=== PATIENT | male | born 1955 | race Caucasian/White ===

== ENCOUNTER → 2018-02-04 22:37 | Outpatient (CLI) | payer OTHER, SELFPAY ==
[2018-02-04 19:07] VITALS: BMI 22.5
[2018-02-04 23:28] LABS: Thyroid Stim Hormone (TSH) 3.26 uIU/mL (0.358-3.74)
--- OUTSIDE RECORDS SUMMARY | 2018-04-02 10:36 | XMS RPT_ITS ---
:1955 Author Organization OH[facility] Care Team Providers Name Role Phone EVANGELINA OGDEN Attending Unavailable Rosmery Michelle NP-Landen Attending Unavailable Rosmery Michelle Referring Unavailable PROBLEMS PROBLEMS DATE TYPE CONDITION / CODE ATTENDING STATUS SOURCE 02/05/2018 Unknown E03.9 - Miguel Angel, Active Cherelle HypothyroidismRosmery NP-C [facility] E03.9(ICD-10) Repository 01/23/2018 Active Unknown / EVANGELINA OGDEN Active [facility] UNK(Unknown) [address] [place] Repository PROCEDURES PROCEDURES No Procedure Records FoundRESULTS RESULTS OFFICE VISIT Observed: 02/05/2018 Status: F Source: [place] 12:35 PM [facility] [address] [place] [address] OFFICE VISIT Date of Service: 02/04/18 MR#: [id number] Acct: [id number] Name: SRIDHAR PRABHAKAR Rep #: [id number] : 1955 Provider: ADELSO Michelle Age/Sex: 62/M Location: [facility] Status: Signed Intake Vital Signs02/04/18 Height 5 ft 10 in 02/04/18 Weight: 157 lb Intake Visit Reasons: HEAD PAIN Allergies Penicillins Allergy (Intermediate, Unverified 02/04/18 15:33) Rash Medications bupropion HCl XL 150 mg 24 hr tablet, extended release 150 mg PO QAM #90 tab 02/04/18 [Rx Confirmed 02/04/18] cefuroxime axetil 500 mg tablet 500 mg PO Q12H 10 Days #20 tab 02/04/18 [Rx Confirmed 02/04/18] fesoterodine ER 4 mg tablet,extended release 24 hr 4 mg PO DAILY #90 tab 02/04/18 [Rx Confirmed 02/04/18] omeprazole 40 mg capsule,delayed release 40 mg PO DAILY #90 cap 02/04/18 [Rx Confirmed 02/04/18] sildenafil 100 mg tablet 100 mg PO ONCE 02/04/18 [History Confirmed 02/04/18] levothyroxine 75 mcg tablet 75 mcg PO DAILY #30 tab 02/05/18 [Rx Confirmed 02/05/18] melatonin 10 mg tablet 20 mg PO HS PRN tab 02/05/18 [History Confirmed 02/05/18] PFSH Medical History Anxiety (Acute) BPH (Acute) Depression (Acute) Hypothyroid (Acute) Hypothyroidism (acquired) (Acute) Insomnia (Acute) Lichen planus (Acute) bladder not emptying properly (Acute) endoscopy 2009 (Acute) Family History Other Colon cancer Heart disease Social History Smoking Status: Never smoker HPI HPI (General) HPI HPI: SRIDHAR PRABHAKAR, is a 62 M who presents to the office today for pressure pain in his forehead especially when he bends over. ROS Const Constitutional: Positive for headache(s) ENT ENT: Positive for headache(s) and dizziness/vertigo Resp Respiratory: Positive for cough Gastro GI: Yes nausea/dyspepsia Neuro Neurology: Positive for headache(s) Exam Const Constitutional: Yes cooperative, Yes healthy appearing Orientation: Yes alert, awake and oriented x3 HENMT Head: Yes normocephalic Ear: Yes hearing grossly normal bilaterally Neck Neck: normal visual inspection Thyroid: thyroid normal Eyes General: Yes appearance normal, both eyes and all related structures Chest Chest palpation AND inspection: Yes normal inspection of the chest Resp Effort AND Inspection: Yes normal respiratory effort Auscultation: Yes clear to auscultation bilaterally Cardio Palpitation: Yes normal PMI Rate: Yes regular rate Rhythm: Yes regular rhythm GI Inspection: Yes normal to inspection Auscultation: Yes normal bowel sounds Musc Cervical Spine: Yes cervical ROM normal Thoracic/Lumbar Spine: Yes thoracic and lumbar spine normal to inspection Skin General: no rashes or lesions noted Lesions: Yes no lesions Extrem General: Yes normal to inspection Neuro General: Yes alert and oriented x3 Psych Appearance: Positive grossly normal Mood: Positive congruent mood Affect: Positive normal affect Assessment AND Plan Problems 1. Acute non-recurrent maxillary sinusitis J01.00 2. Headache disorder R51 3. Generalized anxiety disorder F41.1 4. Recurrent major depressive disorder, in full remission F33.42 5. Elevated BP without diagnosis of hypertension R03.0 Patient Instructions Take the medications as prescribed follow up in Mar for labs drawn and recheck BP tsh elevated so will increase dose to 75 mcg and recheck tsh and BP in 6 weeks Return sooner if not better. Orders Orders: Medications New: Coding Level of Care Code Off vis,est,level 3 Diagnoses Acute non-recurrent maxillary sinusitis J01.00 Chronicity: acute Recurrence: non-recurrent Headache disorder R51 Generalized anxiety disorder F41.1 Anxiety disorder type: generalized anxiety disorder Recurrent major depressive disorder, in full remission F33.42 Active/Remission status: in full remission Depression Type: major depressive disorder Major depression recurrence: recurrent Elevated BP without diagnosis of hypertension R03.0 02/05/18 1235 <Electronically signed by Rosmery ROE> Date Rosmery ROE CC: THYROID STIM HORMONE Collected: 02/04/2018 Status: F Source: [place] ([facility]) 7:30 PM [facility] [place] TYPE CODE TESTS RESULT OUT OF RANGE REFERENCE UNITS LAB L501.9520 0.358-3.74 uIU/mL Normal TSH 3.26 Performed By: #### L501.9520 #### [facility] [address] [place], [address] PROGRESS Observed: 01/27/2018 Status: COMPLETED Source: [place] 9:33 AM [facility] [place] REPOSITORY O ID: [id number] Author: Evangelina Ogden Service: (none) Author Type: Physician Type: Progress Notes Filed: 01/27/2018 9:37 AM Note Text: PROGRESS NOTES PATIENT NAME: Sridhar Prabhakar Assessment ASSESSMENT/PLAN: (R10.31) Abdominal wall pain in right lower quadrant (primary encounter diagnosis) Sridhar presents with recurrent right lower quadrant abdominal wall pain. He is status post laparoscopic right inguinal hernia repair with mesh in June 2015. He has attributed this with lifting heavy boxes at work. On exam I do not palpate a recurrent hernia. I suspect he has scar tissue from his previous repair as his pain seems to be located where the mesh was present. I recommend physical therapy for myofascial release. He will keep me posted on his progress. Office Visit on 01/23/18 -CONSULT TO PHYSICAL THERAPY -levothyroxine (SYNTHROID) 50 mcg tablet SUBJECTIVE CHIEF COMPLAINT: Patient presents with: Consult: Right Inguinal hernia INTERVAL HISTORY OF PRESENT ILLNESS: Sridhar is a 62-year-old gentleman status post laparoscopic right inguinal hernia repair with mesh in June 2015. Postoperatively he did have persistent right lower quadrant pain. This had improved until a month ago when he was moving heavy boxes at work. He felt a sharp ache in his right lower quadrant abdominal wall. The discomfort lasted 2 days and then improved. He continues to have discomfort especially with lifting. Lidocaine patches help. He denies GI symptoms. HISTORIES: PAST MEDICAL HISTORY Diagnosis Date - Acid reflux - Chronic fatigue syndrome with fibromyalgia - Low blood sugar - Unilateral inguinal hernia PAST SURGICAL HISTORY Procedure Laterality Date - COLONOSCOPY - REPAIR INGUINAL HERNIA Right 06/21/2015 ALLERGIES: Patient has no known allergies. MEDICATIONS: Current Outpatient Prescriptions: levothyroxine (SYNTHROID) 50 mcg tablet Take 50 mcg by mouth daily before breakfast. acetaminophen (TYLENOL) 325 mg tablet Take 650 mg by mouth every 6 hours as needed. Fesoterodine (TOVIAZ) 8 mg Tb24 Take by mouth four times daily. omeprazole (PRILOSEC) 20 mg capsule Take 20 mg by mouth once daily. sildenafil (VIAGRA) 100 mg tablet Take 1 tablet by mouth as needed. 30-60 minutes before sexual intercourse. buPROPion SR (WELLBUTRIN SR) 150 mg 12 hr tablet Take 1 tablet by mouth twice daily. Melatonin 1 mg ORAL Tab Take 2 tablets daily at bedtime. Ibuprofen 100 mg tablet Take 400 mg by mouth every 6 hours as needed. No current facility-administered medications for this visit. FAMILY HISTORY Problem Relation Age of Onset - Heart Mother Heart attack - other (Cirrhosis) Father - Colon Cancer Maternal Aunt - Colon Cancer Maternal Uncle Social History Marital status: Spouse name: Years of education: Number of children: Social History Main Topics Smoking status: Never Smoker Smokeless tobacco: Never Used Alcohol use: Yes Comment: once every three months Drug use: No Sexual activity: Yes Partners with: Female Reviewed and agreed with Review of Systems completed by the clinical staff. OBJECTIVE PHYSICAL EXAM: BP 135/85 Pulse 88 Ht 5' 11 (1.80m) Wt 154 lb (69.9kg) BMI 21.49 kg/(m2). General: Well developed, well-nourished, in no distress HEENT: Normocephalic, atraumatic. Extraocular movements intact. Sclera are nonicteric. Heart: Regular rate and rhythm, no murmur Lungs: Clear to auscultation, without wheezes Abdomen: Soft, non tender, positive bowel sounds, no masses, no reproducible pain at this time. The area where he describes discomfort is the area where the mesh is present. No evidence for recurrent hernia. Rectal: Not evaluated Extremities: No edema Neurologic: Alert, oriented, and appropriate. DATA: Diagnostic tests reviewed for today's visit: None Evangelina Ogden MD PROGRESS Observed: 01/23/2018 Status: COMPLETED Source: [place] 9:31 AM [facility] REPOSITORY HNO ID: [id number] Author: Karley Lay LPN Service: (none) Author Type: (none) Type: Progress Notes Filed: 01/27/2018 9:37 AM Note Text: GENERAL:No weight loss, No malaise, No fevers HEENT:Negative for frequent or significant headaches, Positive for:, Wear glasses or contacts, No changes in hearing or vision, no nose bleeds or other nasal problems CARDIOVASCULAR: Negative for chest pain, Negative for leg swelling, Negative for palpitaions RESPIRATORY:Negative for cough, Negative for wheezing , Negative for shortness of breath GASTROINTESTINAL: Negative for abdominal discomfort, Negative for blood in stools, Negative for black stools and Negative for change in bowel habits GENITOURINARY: No history of dysuria, frequency or incontinence. ENDOCRINE:None MUSCULOSKELETAL: Negative for joint pain , Negative for swelling, Negative for back pain, Negative for muscle pain NEUROLOGIC:Negative for focal numbness Negative for weakness Negative for headache Negative for syncope Negative for dizziness HEMATOLOGIC/LYMPHATIC/IMMUNOLOGIC:Positive for: and Bleeding or bruising tendancy CNOV Observed: 01/23/2018 Status: COMPLETED Source: [place] 9:15 AM [facility] REPOSITORY Office Visit (GENSME) SRIDHAR PRABHAKAR ([id number]) 1955 M [facility] Date Time Provider Department 01/23/18 9:15 AM EVANGELINA OGDEN During your visit today, we recorded the following information about you: Pulse Blood pressure Weight Height 88/minute 135/85 69.9 kg 1.803 m Karley Lay [facility] 01/27/2018 9:37 AM Signed GENERAL:No weight loss, No malaise, No fevers HEENT:Negative for frequent or significant headaches, Positive for:, Wear glasses or contacts, No changes in hearing or vision, no nose bleeds or other nasal problems CARDIOVASCULAR: Negative for chest pain, Negative for leg swelling, Negative for palpitaions RESPIRATORY:Negative for cough, Negative for wheezing , Negative for shortness of breath GASTROINTESTINAL: Negative for abdominal discomfort, Negative for blood in stools, Negative for black stools and Negative for change in bowel habits GENITOURINARY: No history of dysuria, frequency or incontinence. ENDOCRINE:None MUSCULOSKELETAL: Negative for joint pain , Negative for swelling, Negative for back pain, Negative for muscle pain NEUROLOGIC:Negative for focal numbness Negative for weakness Negative for headache Negative for syncope Negative for dizziness HEMATOLOGIC/LYMPHATIC/IMMUNOLOGIC:Positive for: and Bleeding or bruising tendancy Evangelina Ogden MD 01/27/2018 9:37 AM Signed PROGRESS NOTES PATIENT NAME: Sridhar Prabhakar Assessment ASSESSMENT/PLAN: (R10.31) Abdominal wall pain in right lower quadrant (primary encounter diagnosis) Sridhar presents with recurrent right lower quadrant abdominal wall pain. He is status post laparoscopic right inguinal hernia repair with mesh in June 2015. He has attributed this with lifting heavy boxes at work. On exam I do not palpate a recurrent hernia. I suspect he has scar tissue from his previous repair as his pain seems to be located where the mesh was present. I recommend physical therapy for myofascial release. He will keep me posted on his progress. Office Visit on 01/23/18 -CONSULT TO PHYSICAL THERAPY -levothyroxine (SYNTHROID) 50 mcg tablet SUBJECTIVE CHIEF COMPLAINT: Patient presents with: Consult: Right Inguinal hernia INTERVAL HISTORY OF PRESENT ILLNESS: Sridhar is a 62-year-old gentleman status post laparoscopic right inguinal hernia repair with mesh in June 2015. Postoperatively he did have persistent right lower quadrant pain. This had improved until a month ago when he was moving heavy boxes at work. He felt a sharp ache in his right lower quadrant abdominal wall. The discomfort lasted 2 days and then improved. He continues to have discomfort especially with lifting. Lidocaine patches help. He denies GI symptoms. HISTORIES: PAST MEDICAL HISTORY Diagnosis Date - Acid reflux - Chronic fatigue syndrome with fibromyalgia - Low blood sugar - Unilateral inguinal hernia PAST SURGICAL HISTORY Procedure Laterality Date - COLONOSCOPY - REPAIR INGUINAL HERNIA Right 06/21/2015 ALLERGIES: Patient has no known allergies. MEDICATIONS: Current Outpatient Prescriptions: levothyroxine (SYNTHROID) 50 mcg tablet Take 50 mcg by mouth daily before breakfast. acetaminophen (TYLENOL) 325 mg tablet Take 650 mg by mouth every 6 hours as needed. Fesoterodine (TOVIAZ) 8 mg Tb24 Take by mouth four times daily. omeprazole (PRILOSEC) 20 mg capsule Take 20 mg by mouth once daily. sildenafil (VIAGRA) 100 mg tablet Take 1 tablet by mouth as needed. 30-60 minutes before sexual intercourse. buPROPion SR (WELLBUTRIN SR) 150 mg 12 hr tablet Take 1 tablet by mouth twice daily. Melatonin 1 mg ORAL Tab Take 2 tablets daily at bedtime. Ibuprofen 100 mg tablet Take 400 mg by mouth every 6 hours as needed. No current facility-administered medications for this visit. FAMILY HISTORY Problem Relation Age of Onset - Heart Mother Heart attack - other (Cirrhosis) Father - Colon Cancer Maternal Aunt - Colon Cancer Maternal Uncle Social History Marital status: Spouse name: Years of education: Number of children: Social History Main Topics Smoking status: Never Smoker Smokeless tobacco: Never Used Alcohol use: Yes Comment: once every three months Drug use: No Sexual activity: Yes Partners with: Female Reviewed and agreed with Review of Systems completed by the clinical staff. OBJECTIVE PHYSICAL EXAM: BP 135/85 Pulse 88 Ht 5' 11 (1.80m) Wt 154 lb (69.9kg) BMI 21.49 kg/(m2). General: Well developed, well-nourished, in no distress HEENT: Normocephalic, atraumatic. Extraocular movements intact. Sclera are nonicteric. Heart: Regular rate and rhythm, no murmur Lungs: Clear to auscultation, without wheezes Abdomen: Soft, non tender, positive bowel sounds, no masses, no reproducible pain at this time. The area where he describes discomfort is the area where the mesh is present. No evidence for recurrent hernia. Rectal: Not evaluated Extremities: No edema Neurologic: Alert, oriented, and appropriate. DATA: Diagnostic tests reviewed for today's visit: None Evangelina Ogden MD Referring Provider: SELF [200] Allergies As of Date: 01/23/2018 (No Known Allergies) Date Reviewed: 01/23/2018 Reviewed by: Karley Lay LPN - Fully Assessed Reason for Visit: Consult [173] Cmt: Right Inguinal hernia Primary Visit Diagnosis:Abdominal wall pain in right lower quadrant [R10.31] Order(s):CONSULT TO PHYSICAL THERAPY [9032] Order #: [id number]: 1 Prescriptions as of 01/23/2018 Sig: LEVOTHYROXINE 50 MCG TABLET Take 50 mcg by mouth daily be* ACETAMINOPHEN 325 MG TABLET Take 650 mg by mouth every 6 * FESOTERODINE ER 8 MG TABLET,E* Take by mouth four times linda* OMEPRAZOLE 20 MG CAPSULE,CAM* Take 20 mg by mouth once ping* SILDENAFIL 100 MG TABLET Take 1 tablet by mouth as nee* BUPROPION HCL SR 150 MG TABLE* Take 1 tablet by mouth twice * MELATONIN 1 MG TABLET Take 2 tablets daily at bedti* IBUPROFEN 100 MG TABLET Take 400 mg by mouth every 6 * Problem List As Of Date 01/23/2018 Noted Resolved PALPITATIONS [R00.2] INVALID FOR* DEPRESSIVE DISORDER NEC [F32.9] INVALID FOR* Anxiety state, unspecified [F41.1] INVALID FOR* ESOPHAGEAL REFLUX [K21.9] INVALID FOR* Sprain, Finger [S63.619A] INVALID FOR* Stiffness in Joint [M25.60] INVALID FOR* Pain in Joint, Hand [M25.549] INVALID FOR* Retention of urine [R33.9] INVALID FOR* Rising PSA level [R97.20] INVALID FOR* Unilateral inguinal hernia [K40.90] Right inguinal hernia [K40.90] INVALID FOR* Encounter Status:Closed by EVANGELINA OGDEN MD on 01/27/18 ALLERGIES ALLERGIES DATE TYPE / CODE NAME / CODE REACTION SEVERITY SOURCE 02/04/2018 Drug Penicillins/F001 Rash [facility] Allergy/416 [id number](RXNORM) [facility] 576103(SNOM Repository ED CT) Drug NO KNOWN [facility] Class/81347 ALLERGIES [address] [place] 1003(SNOMED Repository CT) ENCOUNTERS ENCOUNTERS ADMIT/DISCHARGE ACCOUNT ADMITTING ENCOUNTER LOCATION SOURCE NUMBER CLASS 02/04/2018 [id number] [facility] ing:LABSPEC Repository 01/23/2018/01/29/20 [id number] Ambulatory [address] [place] Repository PAYERS PAYERS ENCOUNTER GUARANTOR PAYER SUBSCRIBER SOURCE 02/04/2018 SRIDHAR Primary SRIDHAR Cherelle [id number] Insurance:[facility] POGORILYDOB: [facility] [id number] Number: Repository [id number]: [phone] [phone] () Date:[id number], [place] [address]EF: 02/04/2018 Secondary NOT GIVENUNK [place] Insurance:SELF PAY [facility] Number: Effective Repository Date:2018-02-04
== END ==
PROVIDERS: Referring Provider Nurse Practitioner; Visit Provider Nurse Practitioner
DX: E03.9 Hypothyroidism, unspecified (principal)
CPT/HCPCS: 84443

== ENCOUNTER → 2018-03-29 14:13 | Outpatient (CLI) | payer OTHER, SELFPAY ==
[2018-03-07 18:16] VITALS: BMI 21.9
[2018-03-29 14:41] LABS: Thyroid Stim Hormone (TSH) 1.02 uIU/mL (0.358-3.74)
--- OUTSIDE RECORDS SUMMARY | 2018-06-02 10:26 | XMS RPT_ITS ---
:1955 Author Organization OH[facility] Care Team Providers Name Role Phone Sherry Michelle JUNIOR SYSTEMS ANALYST-C Attending Unavailable Sherry Michelle JUNIOR SYSTEMS ANALYST-C Referring Unavailable Sherry Michelle JUNIOR SYSTEMS ANALYST-C Attending Unavailable Sherry Michelle JUNIOR SYSTEMS ANALYST-C Referring Unavailable EVANGELINA OGDEN Attending Unavailable SHERRY MICHELLE Referring Unavailable PROBLEMS PROBLEMS DATE TYPE CONDITION / CODE ATTENDING STATUS SOURCE 03/31/2018 Unknown E03.9 - Miguel Angel, Active [place] HypothyroidismSherry JUNIOR SYSTEMS ANALYST-C [facility] unspecified / Hospital E03.9(ICD-10) Repository 03/08/2018 Active Pain in right NA Active [facility] foot / Other [place] M79.671(ICD-10) Repository 01/23/2018 Active Unknown / EVANGELINA OGDEN Active [facility] UNK(Unknown) E Main [place] Repository PROCEDURES PROCEDURES No Procedure Records FoundRESULTS RESULTS OFFICE VISIT Observed: 04/02/2018 Status: F Source: [place] 8:[address] [facility] REPOSITORY After Hours Family Medicine [address] [place] [address] OFFICE VISIT Date of Service: 04/02/18 MR#: [id number] Acct: [id number] Name: RENALDO SAHA Rep #: [id number] : 1955 Provider: ADELSO Michelle Age/Sex: 63/M Location: [facility] Status: Signed Intake Vital Signs04/02/18 Height 5 ft 10 in Intake Visit Reasons: SWOLLEN, BRUISED RING FINGER Accompanied by: self Is patient in pain?: Yes Allergies Penicillins Allergy (Intermediate, Unverified 02/04/18 15:33) Rash Medications bupropion HCl XL 150 mg 24 hr tablet, extended release 150 mg PO QAM #90 tab 02/04/18 [Rx Confirmed 02/04/18] fesoterodine ER 4 mg tablet,extended release 24 hr 4 mg PO DAILY #90 tab 02/04/18 [Rx Confirmed 02/04/18] omeprazole 40 mg capsule,delayed release 40 mg PO DAILY #90 cap 02/04/18 [Rx Confirmed 02/04/18] sildenafil 100 mg tablet 100 mg PO ONCE 02/04/18 [History Confirmed 02/04/18] melatonin 10 mg tablet 20 mg PO HS PRN tab 02/05/18 [History Confirmed 02/05/18] cephalexin 500 mg capsule 500 mg PO BID 7 Days #14 cap 04/02/18 [Rx Confirmed 04/02/18] levothyroxine 75 mcg tablet 75 mcg PO DAILY #90 tab 04/02/18 [Rx Confirmed 04/02/18] PFSH Medical History Anxiety (Acute) BPH (Acute) Depression (Acute) Hypothyroid (Acute) Hypothyroidism (acquired) (Acute) Insomnia (Acute) Lichen planus (Acute) bladder not emptying properly (Acute) endoscopy 2009 (Acute) Family History Other Colon cancer Heart disease Social History Smoking Status: Never smoker second hand exposure: No alcohol intake: never substance use type: does not use HPI HPI (General) HPI HPI: RENALDO SAHA, is a 63 M who presents to the office today for swollen L ring finger for about 4-5 days . Denies trauma not sure how it happened and worried its dislocated or infected. ROS Musc Musculoskeletal: Positive for joint pain (L rilng finger swollen and red) Exam Const Constitutional: Yes cooperative Orientation: Yes alert and awake Neck Neck: full ROM Chest Chest palpation AND inspection: Yes rash (chapped skin of the hands) Resp Effort AND Inspection: Yes normal respiratory effort Auscultation: Yes clear to auscultation bilaterally Cardio Palpitation: Yes normal PMI Rate: Yes regular rate Rhythm: Yes regular rhythm Musc Cervical Spine: Yes cervical ROM normal Thoracic/Lumbar Spine: Yes thoracic and lumbar spine normal to inspection Skin General: no rashes or lesions noted Lesions: Yes no lesions Rash: Yes rashes noted (chapped skin of the hands) Extrem General: Yes full ROM and normal exam except as noted (swollen over the mip joint and dry skin chapped) Neuro General: Yes CN's II-XI intact bilaterally and alert Cranial Nerves: Yes CN's II-XI intact bilaterally Psych Appearance: Positive grossly normal Mood: Positive congruent mood Affect: Positive normal affect Assessment AND Plan Problems 1. Swelling of left ring finger M79.89 2. Infected finger joint M00.9 Patient Instructions Take the antibiotics till gone IF still swollen and not still improved then get the x-ray will call with the results Medications New: Refilled: Coding Level of Care Code Off vis,est,level 3 Diagnoses Swelling of left ring finger M79.89 Infected finger joint M00.9 04/02/182020 <Electronically signed by Sherry ROE> Date Sherry ROE CC: OFFICE VISIT Observed: 03/31/2018 Status: F Source: [place] 8:34 PM [facility] REPOSITORY After Hours Family Medicine [address] [place] [address] OFFICE VISIT Date of Service: 03/29/18 MR#: [id number] Acct: [id number] Name: RENALDO SAHA Rep #: [id number] : 1955 Provider: ADELSO Michelle Age/Sex: 63/M Location: [facility] Status: Signed Intake Intake Visit Reasons: TSH Allergies Penicillins Allergy (Intermediate, Unverified 02/04/18 15:33) Rash Medications bupropion HCl XL 150 mg 24 hr tablet, extended release 150 mg PO QAM #90 tab 02/04/18 [Rx Confirmed 02/04/18] fesoterodine ER [...] (Acute) bladder not emptying properly (Acute) endoscopy 2010 (Acute) Family History Other Colon cancer Heart disease Social History Smoking Status: Never smoker HPI HPI (General) HPI HPI: RENALDO SAHA, is a 63 M who presents to the office today for Assessment AND Plan Orders Orders: Coding Level of Care Code No Charge 03/31/182033 <Electronically signed by Sherry ROE> Date Sherry ROE CC: THYROID STIM HORMONE Collected: 03/29/2018 Status: F Source: [place] (TSH) 2:15 PM [facility] REPOSITORY TYPE CODE TESTS RESULT OUT OF RANGE REFERENCE UNITS LAB L501.9520 0.358-3.74 uIU/mL Normal TSH 1.02 Performed By: #### L501.9520 #### [facility] [place], [address] CALCANEUS 2V AXIAL/LAT Observed: 03/08/2018 Status: F Source: [facility] 12:24 PM [facility] REPOSITORY Performed at [facility] APPROVED BY: RADHA SLADE MD RIGHT CALCANEUS CLINICAL INDICATION: Right heel pain COMPARISON: None FINDINGS: Lateral and axial views of the right calcaneus. Intrinsic osseous architecture is normal. No fracture. No osseous erosion or bone destruction. Tibiotalar and subtalar joints appear normal. No abnormality in the soft tissues. IMPRESSION: 1. Unremarkable right calcaneus. OFFICE VISIT Observed: 03/07/2018 Status: F Source: [place] 7:40 PM [facility] REPOSITORY After Hours [address] [address] OFFICE VISIT Date of Service: 03/07/18 MR#: [id number] Acct: [id number] Name: RENALDO SAHA Rep #: [id number] : 1955 Provider: ADELSO Michelle Age/Sex: 63/M Location: [facility] Status: Signed Intake Vital Signs03/07/18 Height 5 ft 10 in 03/07/18 Weight: 153 lb Intake Visit Reasons: PAIN R HEEL Allergies Penicillins Allergy (Intermediate, Unverified 02/04/18 15:33) Rash Medications bupropion HCl XL 150 mg 24 hr tablet, extended release 150 mg PO QAM #90 tab 02/04/18 [Rx Confirmed 02/04/18] fesoterodine ER [...] HS PRN tab 02/05/18 [History Confirmed 02/05/18] Nurse's Note: using insoles help a bit PFSH Medical History Anxiety (Acute) BPH (Acute) Depression (Acute) Hypothyroid (Acute) Hypothyroidism (acquired) (Acute) Insomnia (Acute) Lichen planus (Acute) bladder not emptying properly (Acute) endoscopy 2009 (Acute) Family History Other Colon cancer Heart disease Social History Smoking Status: Never smoker HPI HPI (General) HPI HPI: RENALDO SAHA, is a 63 M who presents to the office today for R heel pain after starting to walk and developed pain with pressure. 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[employer] Musculoskeletal: Positive for other (R heel pain ) Exam Const Constitutional: Yes cooperative, Yes healthy appearing Orientation: Yes alert, awake and oriented x3 Resp Effort AND Inspection: Yes normal respiratory effort Auscultation: Yes clear to auscultation bilaterally Cardio Palpitation: Yes normal PMI Rate: Yes regular rate Rhythm: Yes regular rhythm Skin General: no rashes or lesions noted and dry skin (R heel) Lesions: Yes no lesions Extrem General: Yes normal to inspection and other (L heel no tenderness on palpation no redness or swelling) Neuro General: Yes alert and oriented x3 Psych Appearance: Positive grossly normal Mood: Positive congruent mood Affect: Positive normal affect Assessment AND Plan Problems 1. Acquired hypothyroidism E03.9 2. Pain of right heel M79.671 Plan c Patient Instructions Continue using the heel and arch support foot R foot Get the x-ray done for the heel Will call with the results Will call in Apr for labs to be drawn for the thyroid again take the increased dose If has a heel spur will refer to podiatry and if not may want to invest in boots to protect the heel better at work Coding Level of Care Code Off vis,est,level 3 Diagnoses Acquired hypothyroidism E03.9 Hypothyroidism type: acquired Pain of right heel M79.671 03/07/181939 <Electronically signed by Sherry ROE> Date Sherry ROE CC: OFFICE VISIT Observed: 02/05/2018 Status: F Source: [place] 12:35 PM [facility] REPOSITORY After Hours Family Medicine [address] [place] [address] OFFICE VISIT Date of Service: 02/04/18 MR#: [id number] Acct: [id number] Name: RENALDO SAHA Rep #: [id number] : 1955 Provider: ADELSO Michelle Age/Sex: 62/M Location: [facility] Status: Signed Intake Vital Signs02/04/18 Height 5 [...] Never smoker HPI HPI (General) HPI HPI: RENALDO SAHA, is a 62 M who presents to [...] hypertension R03.0 02/05/18 1235 <Electronically signed by Sherry ROE> Date Sherry ROE CC: THYROID STIM HORMONE Collected: 02/04/2018 Status: F Source: [place] (TSH) 7:30 PM [facility] REPOSITORY TYPE CODE TESTS RESULT OUT OF RANGE REFERENCE UNITS LAB [id number] 0.358-3.74 uIU/mL Normal TSH 3.26 Performed By: #### L501.9520 #### [facility] [address] [place], [address] PROGRESS Observed: 01/27/2018 Status: COMPLETED Source: [place] 9:33 AM [facility] REPOSITORY O ID: [id number] Author: Evangelina Ogden Service: (none) Author Type: Physician Type: Progress Notes Filed: 01/27/2018 9:37 AM Note Text: PROGRESS NOTES PATIENT NAME: Renaldo Saha Assessment ASSESSMENT/PLAN: (R10.31) Abdominal wall pain in right lower quadrant (primary encounter diagnosis) Renaldo presents with recurrent right lower quadrant abdominal [...] Inguinal hernia INTERVAL HISTORY OF PRESENT ILLNESS: Renaldo is a 62-year-old gentleman status post laparoscopic [...] MD PROGRESS Observed: 01/23/2018 Status: COMPLETED Source: [place] 9:31 AM [facility] REPOSITORY HNO ID: [id number] Author: Karley Lay LPN Service: (none) Author [...] tendancy CNOV Observed: 01/23/2018 Status: COMPLETED Source: [place] 9:15 AM [facility] REPOSITORY Office Visit (GENSME) RENALDO SAHA ([id number]) 1955 M [facility] Date Time Provider Department 01/23/18 9:15 AM EVANGELINA OGDEN During your visit today, we recorded the following information about you: Pulse Blood pressure Weight Height 88/minute 135/85 69.9 kg 1.803 m Karley Lay PRINTING PLATE MAKER 01/27/2018 9:37 AM Signed GENERAL:No weight loss, [...] 9:37 AM Signed PROGRESS NOTES PATIENT NAME: Reanldo Saha Assessment ASSESSMENT/PLAN: (R10.31) Abdominal wall pain in right lower quadrant (primary encounter diagnosis) Renaldo presents with recurrent right lower quadrant abdominal [...] Inguinal hernia INTERVAL HISTORY OF PRESENT ILLNESS: Renaldo is a 62-year-old gentleman status post laparoscopic [...] Order(s):CONSULT TO PHYSICAL THERAPY [9032] Order #: [id number]: 1 Prescriptions as of 01/23/2018 Sig: LEVOTHYROXINE [...] REACTION SEVERITY SOURCE 02/04/2018 Drug Penicillins/F001 Rash [facility] Allergy/416 [id number](RXNORM) Hospital 912697(SNOM Repository ED CT) Drug NO KNOWN [facility] Class/68[address] ALLERGIES Main [place] 1003(SNOMED Repository CT) ENCOUNTERS ENCOUNTERS ADMIT/DISCHARGE ACCOUNT ADMITTING ENCOUNTER LOCATION SOURCE NUMBER CLASS 03/29/2018 [id number] [facility] ing:LABSPEC Repository 03/08/2018 [id number] [facility] Other [place] Repository 02/04/2018 [id number] [facility] ing:LABSPEC Repository 01/23/2018/01/29/20 [id number] Ambulatory [address] Repository PAYERS PAYERS ENCOUNTER GUARANTOR PAYER SUBSCRIBER SOURCE 03/29/2018 RENALDO Primary RENALDO [place] [id number] [facility] [address] [id number] Number: Repository [id number]: 330 [id number] [phone] () Date:[id number] [id number] [place] [phone]: 03/29/2018 Secondary NOT GIVENUNK [place] Insurance:SELF PAY [facility] Number: Effective Repository Date:2018-03-29 02/04/2018 RENALDO Primary RENALDO [place] [id number] Insurance:[facility]: [address] [id number] Number: Repository [address]Syy: [phone] [id number] [phone] () Date:[id number] [id number] [place] [phone]: 02/04/2018 Secondary NOT GIVENUNK [place] Insurance:SELF PAY [facility]: Effective Repository Date:2018-02-04
== END ==
LOC: LAB 03-31 08:04 → LABSPEC 03-31 08:04
PROVIDERS: Referring Provider Nurse Practitioner; Visit Provider Nurse Practitioner
DX: E03.9 Hypothyroidism, unspecified (principal)
CPT/HCPCS: 84443

== ENCOUNTER 2019-03-16 17:30 | Outpatient (RCR) | payer OTHER, SELFPAY ==
[2019-01-21 19:12] VITALS: BMI 22.1
--- NOTE | 2019-02-18 18:37 | HP.PTEVAL_ITS ---
Patient's Visit Information SRIDHAR PRABHAKAR is a 63 year old M referred to Physical Therapy by Travis Salinas DPM with a diagnosis of R Plantar fascitis, Post tib tendonitis, heel spur, flat foot, bunionette. Date of Evaluation: 02/18/19 Physical Therapist: SANDRITA Christina - Visit Plan Frequency: 2x /Week Duration: 4 Weeks Plan: 2X/ week for 4 weeks for stretching of B fascial, US/DN, strengthening of B INV/EV, gait training, balance activities, with HEP and E-stim as needed - Subjective Findings: He started to have pain at work in his foot on 03-03-18. He tried to get insoles and then went to Urgent Care and then ended up seeing Dr Salinas. Pt has been working with Dr Vincent Salinas and he has done some exercises through the Dr and with 2 cortizone injections and has been icing at home. It is a little bit better but he can not get throught the day without having an insert in his shoe. He has an orthotic for plantar fascititis. When he does not use the orthotic he gets pain in his foot. Pt has a slight ache at rest. He has pain at times with walking but better with the orthotic. He does not wake up in the morning with a painful foot. He does not stretch his foot before he gets out of bed in the morning. - Pain R foot pain Pain Intensity (Out of 10): 3 - Objective Gait: walks with slight decrease stance time on the R and decrease push off on the R. Pt is able to heel and toe raise ( slightly decrease toe rase ROM B). AROM R ankle: PF 41 degrees and DF 6 degrees, EV 2 degrees, and INV 24 degrees. L Ankle AROM: 7 degrees DF, 57 degrees PF, 20 degrees inv, and 2 degrees EV. Palpation: Tender at the plantar fascia at the calcaneus and just up from there as well as very slight tenderness along the post tib R. R ankle MMT: INV 4/5, EV 4-/5 with no pain, DF/PF 4/5 with no pain - Goals Goal 1:: I HEP Goal Time Frame: 4-6 Weeks Goal 2:: Decrease R foot pain by 50% when walking without his orthotics Goal Time Frame: 4-6 Weeks Goal 3:: Walk with a normal gait pattern Goal Time Frame: 4-6 Weeks Goal 4:: Increase R EV/INV to 4/5 Goal Time Frame: 4-6 Weeks - Rehabilitation Potential Rehabilitation Potential: Fair - Anticipated Interventions Patient/Client Instruction: Educate patient on: Condition, Plan of Care For the Purpose of:: To decrease pain, To increase ROM, To improve nutrient delivery to tissue, To improve muscle performance and motor function, To improve ability to perform ADL's, To increase tolerance to activity/condition/position, To improve ability of physical actions for home/community/work/leisure, To improve gait and locomotor functions, To improve health of tissue, To decrease soft tissue restriction, To increase flexibility/ROM, To improve balance, To improve safety with gait Therapeutic Exercise to Include: Strength training, Balance training, Flexibilty training, Gait and locomotor training, Passive ROM, Active ROM For the Purpose of:: To decrease pain, To increase ROM, To improve nutrient de livery to tissue, To improve muscle performance and motor function, To improve ability to perform ADL's, To increase tolerance to activity/condition/position, To improve performance and independence with ADL's, To improve gait and locomotor functions, To improve health of tissue, To decrease soft tissue restriction, To increase flexibility/ROM Manual Therapy Techniques to Include: Mobilization, Passive ROM, Soft tissue mobilization For the Purpose of:: To decrease pain, To increase ROM, To improve health of tissue, To decrease soft tissue restriction, To increase flexibility/ROM IF ES: Yes Cryotherapy (ice pack, ice massage): Yes Thermo therapy (hot pack): Yes Ultrasound (thermal/non thermal): Yes For the Purpose of:: To decrease pain, To increase ROM, To improve nutrient delivery to tissue, To improve muscle performance and motor function, To improve ability to perform ADL's, To increase tolerance to activity/condition/position, To improve health of tissue, To decrease soft tissue restriction, To increase flexibility/ROM Thank you for the opportunity to evaluate your patient. For Medicare and Medicare HMO plans, please review the plan of care and approve it. It will need to be FAXED BACK to us at [phone] for Medicare purposes. For Medicare only, by signing this I certify the plan of care. Please let me know if there are questions or concerns regarding this plan of care. Physician Signature: Date:
--- NOTE | 2019-03-24 15:35 | HP.PTREVAL ---
Travis Salinas DPM, It has been my pleasure to treat SRIDHAR PRABHAKAR over the last 8 visits for R Plantar fascitis, Post tib tendonitis, heel spur, flat foot, bunionette. Please see the progress note below for an update on the physical therapy plan of care! Subjective: Pt. reports I am less achey today. He reports being HEP compliant. Pt. reports feeling overall improved, but not all the way better.' Objective/Function: Pt. has overall improved symptoms. Pt. reports no pain post PT. pt. has increased tolerance with DN, US and prlonged stretching. Pt. is currently out of PT visits and is to follow up with physician about how to proceed. Pt. has good gait progression, improved strength to 4/5 throughout without increase ins ymptoms. 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 Plan Plan: Pt. to follow up with physician about how to proceed. Pt. is currently out of PT visits. Pt. on hold until follow up. Goals Goal 1:: I HEP Goal Time Frame: 4-6 Weeks Goal Progress: Goal Met Goal 2:: Decrease R foot pain by 50% when walking without his orthotics Goal Time Frame: 4-6 Weeks Goal Progress: Progressing Goal 3:: Walk with a normal gait pattern Goal Time Frame: 4-6 Weeks Goal Progress: Progressing Goal 4:: Increase R EV/INV to 4/5 Goal Time Frame: 4-6 Weeks Goal Progress: Progressing Anticipated Interventions Patient/Client Instruction: Educate patient on: Condition, Plan of Care For the Purpose of:: To decrease pain, To increase ROM, To improve nutrient delivery to tissue, To improve muscle performance and motor function, To improve ability to perform ADL's, To increase tolerance to activity/condition/position, To improve ability of physical actions for home/community/work/leisure, To improve gait and locomotor functions, To improve health of tissue, To decrease soft tissue restriction, To increase flexibility/ROM, To improve balance, To improve safety with gait Therapeutic Exercise to Include: Strength training, Balance training, Flexibilty training, Gait and locomotor training, Passive ROM, Active ROM For the Purpose of:: To decrease pain, To increase ROM, To improve nutrient delivery to tissue, To improve muscle performance and motor function, To improve ability to perform ADL's, To increase tolerance to activity/condition/position, To improve performance and independence with ADL's, To improve gait and locomotor functions, To improve health of tissue, To decrease soft tissue restriction, To increase flexibility/ROM Manual Therapy Techniques to Include: Mobilization, Passive ROM, Soft tissue mobilization For the Purpose of:: To decrease pain, To increase ROM, To improve health of tissue, To decrease soft tissue restriction, To increase flexibility/ROM IF ES: Yes Cryotherapy (ice pack, ice massage): Yes Thermo therapy (hot pack): Yes Ultrasound (thermal/non thermal): Yes For the Purpose of:: To decrease pain, To increase ROM, To improve nutrient delivery to tissue, To improve muscle performance and motor function, To improve ability to perform ADL's, To increase tolerance to activity/condition/position, To improve health of tissue, To decrease soft tissue restriction, To increase flexibility/ROM Please do not hesitate to contact me at [phone] by phone or if you have questions or concerns regarding this new plan of care! Sincerely, William Segovia DPT
--- NOTE | 2019-06-01 16:14 | HP.PTDCSUM_ITS ---
It has been my pleasure to treat SRIDHAR PRABHAKAR referred by Travis Salinas DPM, with the diagnosis of R Plantar fascitis, Post tib tendonitis, heel spur, flat foot, bunionette for a total of 8 visit(s). Discharge Date: Please see the following information for a summary of their discharge status. Subjective: Pt. reports I am less achey today. He reports being HEP compliant. Pt. reports feeling overall improved, but not all the way better.' R foot pain Pain Intensity (Out of 10): 1 % Improvement: 70 Objective/Function: Pt. has overall improved symptoms. Pt. reports no pain post PT. pt. has increased tolerance with DN, US and prlonged stretching. Pt. is currently out of PT visits and is to follow up with physician about how to proceed. Pt. has good gait progression, improved strength to 4/5 throughout without increase ins ymptoms. 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 Goal 1:: I HEP Goal Progress: Goal Met Goal 2:: Decrease R foot pain by 50% when walking without his orthotics Goal Progress: Progressing Goal 3:: Walk with a normal gait pattern Goal Progress: Progressing Goal 4:: Increase R EV/INV to 4/5 Goal Progress: Progressing Plan: Pt. to follow up with physician about how to proceed. Pt. is currently out of PT visits. Pt. on hold until follow up. If there are questions or concerns regarding this patient's physical therapy, please feel free to call me at [phone]. Thank you for the referral of this patient. Sincerely, Nidhi Fernandez, MPT
== END 2019-03-16 19:00 | disposition home or self-care (01) ==
LOC: PT 17:30
PROVIDERS: Family Provider Nurse Practitioner; PCP Nurse Practitioner; Referring Provider Podiatrist; Visit Provider Podiatrist
DX: M72.2 Plantar fascial fibromatosis (principal); M76.821 Posterior tibial tendinitis, right leg; M77.31 Calcaneal spur, right foot; M79.671 Pain in right foot; M21.6X9 Other acquired deformities of unspecified foot; M21.41 Flat foot [pes planus] (acquired), right foot
CPT/HCPCS: 97035; 97110; 97140; 97162

== ENCOUNTER → 2019-04-06 | Outpatient (CLI) | payer BC, SELFPAY ==
[2019-04-06 17:43] VITALS: BMI 22.1
[2019-04-06 20:46] LABS: Thyroid Stim Hormone (TSH) 1.41 uIU/mL (0.358-3.74)
== END | disposition home or self-care (01) ==
PROVIDERS: PCP Nurse Practitioner; Referring Provider Nurse Practitioner; Visit Provider Nurse Practitioner
DX: E03.9 Hypothyroidism, unspecified (principal)
CPT/HCPCS: 84443

== ENCOUNTER → 2019-07-02 08:56 | Outpatient (CLI) | payer BC, MEDICAID, SELFPAY ==
[2019-06-29 09:26] VITALS: BMI 22.8
--- NOTE | 2019-07-02 08:58 | US_ITS ---
STUDY: ABDOMINAL ULTRASOUND - RIGHT UPPER QUADRANT REASON FOR VISIT: Male, 64 years old EPIGASTRIC PAIN TECHNIQUE: Ultrasound evaluation of the right upper quadrant was performed with real-time and static bowen-scale imaging. TECHNICAL QUALITY: Adequate. COMPARISON: None. FINDINGS: Liver: The liver measures 17.3 cm. There is normal echogenicity of the liver. The bile ducts are within normal limits. There is hepatic color flow. The direction of portal flow is hepatopetal. There is a 2.6 cm x 2.1 cm x 2.7 cm cyst in the posterior aspect of the right lobe of the liver Gallbladder: Normal distended gallbladder. The gallbladder wall measures 1.7 mm. There is a negative sonographic Dunn''s sign. There is no pericholecystic fluid. There are no gallstones. Common Bile Duct (C.B.D.): The common bile duct measures 4.6 mm. Pancreas: Normal size of the head, body and tail of the pancreas. There is normal echogenicity of the pancreas. There is no demonstrated pancreatic mass or cyst. Right Kidney: Normal size of the right kidney. The right kidney measures 11.2 cm x 5.1 cm x 3.4 cm. Normal renal cortex. The right cortex measures 1.2 cm. There is no demonstrated renal mass or cyst. There is no right hydronephrosis. US/Gallbladder IMPRESSION: 2.6 cm x 2.1 cm x 2.7 cm cyst in the right lobe of the liver. Electronically Signed: Shan Zavala, at 10:16 EDT , Service support ,
== END ==
PROVIDERS: PCP Internal Medicine; Referring Provider Surgery; Visit Provider Surgery
DX: R10.13 Epigastric pain (principal); R11.0 Nausea
CPT/HCPCS: 76705

== ENCOUNTER 2019-07-24 07:01 | Day surgery (SDC) | payer BC, MEDICAID, SELFPAY ==
[2019-06-29 09:26] VITALS: BMI 22.8
[2019-07-24 07:21] VITALS: BP 133/87; PULSE 75; RESP 16; TEMP 36.9; O2SAT 100; BMI 22.9
[2019-07-24] MEDS: Lactated Ringers 1,000 ML 100 ML IV (07:29)
--- NOTE | 2019-07-24 07:36 | PCM.HP.BLA ---
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 Chief Complaint: Est Care - med refills & mole on back Wildlife Officer Required: No Is patient in pain?: No Allergies Penicillins Allergy (Intermediate, Verified 06/29/19 09:26) Rash Medications sildenafil 100 mg tablet 100 mg PO ONCE 02/04/18 [History Confirmed 06/29/19] melatonin 10 mg tablet 20 mg PO HS PRN tab 02/05/18 [History Confirmed 06/29/19] bupropion HCl 150 mg 24 hr tablet, extended release 150 mg PO QAM #90 tab 06/24/19 [Rx Confirmed 06/29/19] calcium 400 PO 06/24/19 [History Confirmed 06/29/19] fesoterodine 4 mg tablet,extended release 24 hr 4 mg PO TID #270 tab 06/24/19 [Rx Confirmed 06/29/19] levothyroxine 75 mcg tablet 75 mcg PO DAILY #90 tab 06/24/19 [Rx Confirmed 06/29/19] omeprazole 40 mg capsule,delayed release 40 mg PO DAILY #90 cap 06/24/19 [Rx Confirmed 06/29/19] vitamin B complex 1 tab PO DAILY 06/24/19 [History Confirmed 06/29/19] vitamin c 120 iu PO 06/24/19 [History Confirmed 06/29/19] sucralfate 1 gram tablet 1 g PO QACHS #120 tab 06/29/19 [Rx Confirmed 06/29/19] PFSH Medical History (Updated 06/29/19 @ 09:[address] Steve Khanna MD) Heart valve problem (Chronic) Murmur, cardiac (Chronic) Hypoglycemia (Chronic) Hives (Resolved) Carpal tunnel syndrome on both sides (Chronic) Arthritis (Chronic) Cid esophagus (Chronic) Anxiety (Chronic) Depression (Chronic) Insomnia (Chronic) BPH (Chronic) bladder not emptying properly (Acute) Lichen planus (Chronic) Hypothyroidism (acquired) (Chronic) Plantar fasciitis of right foot (Chronic) GERD (gastroesophageal reflux disease) (Chronic) Surgical History S/P right inguinal hernia repair (Acute) endoscopy 2010 (Acute) Family History Aunt Colon cancer Mother Myocardial infarction Heart disease Arthritis Grandmother CVA (cerebral vascular accident) Other Cancer Social History (Updated 06/29/19 @ 09:[address] Steve Khanna MD) Smoking Status: Never smoker second hand exposure: No alcohol intake: never substance use type: does not use what type of physical activity do you participate in: none HPI HPI HPI: SRIDHAR PRABHAKAR, is a 64 M who presents to the office today for HPI HPI HPI: SRIDHAR PRABHAKAR, is a 64 M who presents to the office today for Epigastric pain and history of Cid's. The patient notes that he feels pins pricking in his right upper quadrant epigastric region after eating. He was report decreased appetite and weight loss. He does have a history of Cid's esophagus which was diagnosed over 2 years ago. He has not had a scope since. He reports his last colonoscopy was over 10 years ago. His only family history of colon cancer is his aunt. Patient reports no blood in the stool. He is on a PPI. ROS General General: Yes weight change; no appetite or fatigue Musc Musculoskeletal: Yes arthritis Cardio Cardiovascular: Yes murmur; no pacemaker, heart disease, atrial fibrillation, high blood pressure, heart attack, heart stent, palpitations, shortness of breat with exertion or chest pain Psych Psychiatric: Yes depression and anxiety Resp Respiratory: No shortness of breath, No sleep apnea, No cough, No COPD, No asthma, No emphysema, No wheezing Gastro Gastrointestinal: Yes abdominal pain, Yes nausea or vomiting, No diarrhea, No constipation, No blood in stool, Yes acid reflux, No hemorrhoids, No ulcers, No gallbladder problem, No black,tarry stools John Hematologic: No blood thinners Exam Const General: cooperative Orientation: alert, oriented x3 Resp Effort & Inspection: normal respiratory effort Auscultation: clear to auscultation bilaterally Cardio Rate: regular rate Rhythm: regular rhythm Heart Sounds: murmur GI Inspection: non-distended Palpation: soft, nontender Assessment & Plan Problems 1. 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 Screen for colon cancer Z12.11 3. Epigastric pain R10.13 Plan The patient has a history of Cid's esophagus and requires EGD for surveillance. He is also having epigastric pain. I will add Carafate to his medications. He is already on a PPI. I also recommend screening colonoscopy. I explained endoscopy in detail to the patient. I explained the risks including but not limited to stroke or heart attack with anesthesia, perforation of the GI tract, bleeding, infection. I explained that any of these could necessitate further emergency surgery. The patient understands and all questions were answered sufficiently. The patient wishes to proceed with procedure. Patient will be scheduled in July for his upper and lower endoscopy. Steve Khanna MD Pager: [facility] [address] [place] [address], [address] [place] [address] Office:
--- NOTE | 2019-07-24 08:00 | EGD_PTH ---
PATIENT: SRIDHAR PRABHAKAR LOC: EN U#:[id number] AGE/SX: 64/M ROOM: RE07/24/[address]: Dr. Steve Khanna MD : 1955 BED: DIS: 07/24/2019 SPEC #: [id number] RECD: 07/24/19 12:22 STATUS: GONZALO RESurjit #: [id number] DERIC: 07/24/19 08:[address]: Steve Khanna DEPT: SURGICAL PATHOLOGY RECD BY: Mario Grijalva ENTERED: 07/27/19 11:32 SP TYPE: EGD BIOPSY OTHR DR: Dr. Homer Moy MD Tissues: Gastric mucous membrane Procedures: Special Stain Group II Surgery Specimen Level IV Alcian Blue/PAS (control) HEADER OPERATION: Colonoscopy, EGD ([facility] [place]) PRE-OP DIAGNOSIS: Cid's, screening TISSUE SUBMITTED: GE junction biopsy MICROSCOPIC DIAGNOSIS GE junction, biopsy: Fragments of gastroesophageal mucosa with moderate chronic inflammation. Negative for intestinal metaplasia (goblet cell metaplasia). See comment. NAVARRO:[email or web address] 07/28/19 COMMENT Alcian blue/PAS stain with matched control is used in the evaluation of the specimen. Case has been reviewed in consultation with Dr. Farris who concurs with the above diagnosis. IDC:AM MICROSCOPIC DESCRIPTION Slides are reviewed. GROSS DESCRIPTION Received in fixative is one container labeled with the patient's name and designated GE junction biopsy. The specimen consists of multiple irregular fragments of light weller soft tissue that in aggregate measure 2?x 0.2 x 0.1 cm. The specimen is totally submitted in one cassette. / NAVARRO:sukhjinder 07/27/19 TC:3 CPT: 97297, 30629
[2019-07-24 08:47] VITALS: BP 117/84; BP 133/87; PULSE 69; RESP 16; TEMP 36.2; O2SAT 100
--- NOTE | 2019-07-24 08:47 | OP.EGD_ITS ---
Patient Name: Renaldo Saha Procedure Date: 07/24/2019 7:48 AM Date of : 1955 Age: 64 Procedure: Upper GI endoscopy Indications: Follow-up of Cid's esophagus Providers: Steve Khanna MD Medicines: Monitored Anesthesia Care Patient Profile: This is a 64 year old male. Refer to note in patient chart for documentation of history and physical. Complications: No immediate complications. Estimated blood loss: Minimal. Procedure: Pre-Anesthesia Assessment: - Prior to the procedure, a History and Physical was performed, and patient medications and allergies were reviewed. The patient's tolerance of previous anesthesia was also reviewed. The risks and benefits of the procedure and the sedation options and risks were discussed with the patient. All questions were answered, and informed consent was obtained. Prior Anticoagulants: The patient has taken no previous anticoagulant or antiplatelet agents. After reviewing the risks and benefits, the patient was deemed in satisfactory condition to undergo the procedure. After obtaining informed consent, the endoscope was passed under direct vision. Throughout the procedure, the patient's blood pressure, pulse, and oxygen saturations were monitored continuously. The gastroscope was introduced through the mouth, and advanced to the second part of duodenum. The upper GI endoscopy was accomplished without difficulty. The patient tolerated the procedure well. Scope In: 8:13:04 AM Scope Out: 8:17:15 AM Total Procedure Duration Time 0 hours 4 minutes 11 seconds Findings: There were esophageal mucosal changes secondary to established short-segment Cid's disease present at the gastroesophageal junction. The maximum longitudinal extent of these mucosal changes was 1 cm in length. Mucosa was biopsied with a cold forceps for histology. One specimen bottle was sent to pathology. The stomach was normal. The examined duodenum was normal. Impression: - Esophageal mucosal changes secondary to established short-segment Cid's disease. Biopsied. - Normal stomach. - Normal examined duodenum. Recommendation: - Discharge patient to home. - Resume previous diet. - Continue present medications. - Await pathology results. - Repeat upper endoscopy in 3 years for surveillance. Procedure Code(s): --- Professional --- 54084, Esophagogastroduodenoscopy, flexible, transoral; with biopsy, single or multiple Diagnosis Code(s): --- Professional --- K22.70, Cid's esophagus without dysplasia CPT copyright 2017 [employer]. All rights reserved. The codes documented in this report are preliminary and upon display coordinator review may be revised to meet current compliance requirements. Steve Khanna MD 07/24/2019 8:46:44 AM This report has been signed electronically. Number of Addenda: 0 Note Initiated On: 07/24/2019 7:48 AM
--- NOTE | 2019-07-24 08:47 | OP.CCLET_ITS ---
07/24/2019 Homer Moy MD [address] [place] [address] [place] [address] Re : Upper GI endoscopy procedure for Renaldo Saha Dear Dr. Moy This procedure was performed on Wednesday, July 24, 2019. My impressions and recommendations are as follows: Impressions : - Esophageal mucosal changes secondary to established short-segment Cid's disease. Biopsied. - Normal stomach. - Normal examined duodenum. Recommendations : - Discharge patient to home. - Resume previous diet. - Continue present medications. - Await pathology results. - Repeat upper endoscopy in 3 years for surveillance. My findings are described in the full procedure note, which is enclosed. If I can be of further assistance, please feel free to contact me at Doctor phone number(s): , Work: . Sincerely, Steve Khanna MD 07/24/2019 8:46:44 AM This report has been signed electronically.
--- NOTE | 2019-07-24 08:48 | OP.COLON_ITS ---
Patient Name: Renaldo Saha Procedure Date: 07/24/2019 8:17 AM Date of : 1955 Age: 64 Procedure: Colonoscopy Indications: Screening for colorectal malignant neoplasm Providers: Steve Khanna MD Medicines: Monitored Anesthesia Care Patient Profile: This is a 64 year old male. Refer to note in patient chart for documentation of history and physical. Last Colonoscopy: none. The patient's first colonoscopy is today. Complications: No immediate complications. Estimated blood loss: None. Procedure: Pre-Anesthesia Assessment: - Prior to the procedure, a History and Physical was performed, and patient medications and allergies were reviewed. The patient's tolerance of previous anesthesia was also reviewed. The risks and benefits of the procedure and the sedation options and risks were discussed with the patient. All questions were answered, and informed consent was obtained. Prior Anticoagulants: The patient has taken no previous anticoagulant or antiplatelet agents. After reviewing the risks and benefits, the patient was deemed in satisfactory condition to undergo the procedure. After I obtained informed consent, the scope was passed under direct vision. Throughout the procedure, the patient's blood pressure, pulse, and oxygen saturations were monitored continuously. The colonoscope was introduced through the anus and advanced to the cecum, identified by appendiceal orifice and ileocecal valve. The colonoscopy was performed without difficulty. The patient tolerated the procedure well. The quality of the bowel preparation was good. Scope In: 8:19:58 AM Scope Withdrawal Time 0 hours 6 minutes 8 seconds Scope Out: 8:40:20 AM Total Procedure Duration Time 0 hours 20 minutes 22 seconds Findings: The entire examined colon appeared normal on direct and retroflexion views. Impression: - The entire examined colon is normal on direct and retroflexion views. - No specimens collected. Recommendation: - Discharge patient to home. - Resume previous diet. - Continue present medications. - Repeat colonoscopy in 10 years for screening purposes. Procedure Code(s): --- Professional --- 89602, Colonoscopy, flexible; diagnostic, including collection of specimen(s) by brushing or washing, when performed (separate procedure) Diagnosis Code(s): --- Professional --- Z12.11, Encounter for screening for malignant neoplasm of colon CPT copyright 2017 [employer]. All rights reserved. The codes documented in this report are preliminary and upon shroud line tier review may be revised to meet current compliance requirements. Steve Khanna MD 07/24/2019 8:47:55 AM This report has been signed electronically. Number of Addenda: 0 Note Initiated On: 07/24/2019 8:17 AM
--- NOTE | 2019-07-24 08:48 | OP.CCLET_ITS ---
07/24/2019 Homer Moy MD [address] [place] [address] [place] [address] Re : Colonoscopy procedure for Renaldo Saha Dear Dr. Moy This procedure was performed on Wednesday, July 24, 2019. My impressions and recommendations are as follows: Impressions : - The entire examined colon is normal on direct and retroflexion views. - No specimens collected. Recommendations : - Discharge patient to home. - Resume previous diet. - Continue present medications. - Repeat colonoscopy in 10 years for screening purposes. My findings are described in the full procedure note, which is enclosed. If I can be of further assistance, please feel free to contact me at Doctor phone number(s): , Work: . Sincerely, Steve Khanna MD 07/24/2019 8:47:55 AM This report has been signed electronically.
[2019-07-24 08:50] VITALS: BP 110/81; BP 133/87; PULSE 70; RESP 16; O2SAT 100
[2019-07-24 08:56] VITALS: BP 124/78; BP 133/87; PULSE 67; RESP 16; O2SAT 100
[2019-07-24 09:03] VITALS: BP 120/85; BP 133/87; PULSE 65; RESP 16; TEMP 36.3; O2SAT 100
[2019-07-24 09:27] VITALS: BP 133/87
== END 2019-07-24 09:38 | disposition home or self-care (01) ==
LOC: EN 07:04 → AC 07:05
PROVIDERS: PCP Internal Medicine; Referring Provider Internal Medicine; Visit Provider Surgery
PROC: 0DJD8ZZ Inspection of Lower Intestinal Tract, Via Natural or Artificial Opening Endoscopic (ICD-10-PCS; CPT 45378; principal; 2019-07-24 07:55)
DX: Z12.11 Encounter for screening for malignant neoplasm of colon (principal); K22.719 Barrett's esophagus with dysplasia, unspecified; K21.9 Gastro-esophageal reflux disease without esophagitis; E03.9 Hypothyroidism, unspecified; R10.13 Epigastric pain; N40.1 Benign prostatic hyperplasia with lower urinary tract symptoms; R39.14 Feeling of incomplete bladder emptying; M19.90 Unspecified osteoarthritis, unspecified site; G47.00 Insomnia, unspecified; F32.9 Major depressive disorder, single episode, unspecified; F41.9 Anxiety disorder, unspecified; Z88.0 Allergy status to penicillin; Z80.0 Family history of malignant neoplasm of digestive organs; Z11.59 Encounter for screening for other viral diseases
CPT/HCPCS: 43239; 45378; 87635; 88305; 88313; G2023; J7120; J2405; U0002

== ENCOUNTER → 2019-10-23 10:14 | Outpatient (CLI) | payer OTHER, BC, MEDICAID, SELFPAY ==
--- NOTE | 2019-10-23 10:19 | MRI_ITS ---
STUDY: MRI RIGHT ANKLE WITHOUT CONTRAST REASON FOR EXAM: Male, 64 years old. RIGHT ankle pain, plantar fascitis TECHNIQUE: Standardized fat and water weighted pulse sequences were obtained in all 3 orthogonal planes. COMPARISON: None. FINDINGS: Normal subcutis adipose space. Normal posterior tibialis tendon. Normal flexor digitorum longus tendon. Normal flexor hallucis longus tendon. Normal peroneus longus and brevis tendons. Normal tibialis anterior tendon. Normal extensor hallucis longus tendon. Normal extensor digitorum longus tendons. Normal Achilles tendon and teno-osseous insertion. There is thickening of the proximal central cord of the plantar fascia with adjacent edema, series 8 images through . Normal plantar calcaneal tubercles. Normal intrinsic muscles of the rearfoot. Normal distal tibiofibular syndesmotic ligamentous complex. Normal lateral ligamentous complex. Normal subtalar ligaments and sinus tarsi. Normal deltoid ligamentous complexes. Normal plantar calcaneonavicular (spring) ligament. Normal tibiotalar articulation. There is a 0.3 cm cystic focus of the medial talar dome. Normal subtalar articulations. Normal talonavicular articulation. Normal calcaneocuboid articulation. Normal navicular-cuneiform articulations. MRI/Lower Ext Joint Only (Routine) IMPRESSION: Plantar fasciitis with thickening and adjacent edema. No fracture. Electronically Signed: Rome Shea MD at 11:58 EDT , Service support ,
== END ==
PROVIDERS: PCP Internal Medicine; Referring Provider Podiatrist; Visit Provider Podiatrist
DX: M72.2 Plantar fascial fibromatosis (principal)
CPT/HCPCS: 73721

== ENCOUNTER → 2020-03-18 13:40 | Outpatient (CLI) | payer MEDICAID, SELFPAY ==
[2020-03-18 13:21] VITALS: BMI 24.0
[2020-03-18 15:44] LABS: Absolute Lymphocyte Count 1.27 X10^3/uL (0.83-4.51); Absolute Neutrophil Count 3.3 X10^3/uL (2.0-7.7); Basophil# 0.02 X10^3/uL; Basophil% 0.4 % (0-1); Eosinophil# 0.08 X10^3/uL; Eosinophils% 1.5 % (0-5); Hematocrit 47.7 % (40-54); Hemoglobin 15.8 g/dL (13.0-16.5); Lymphocyte # 1.27 X10^3/ul (4.0); Lymphocyte % 23.7 % (19-41); Mean Corp Hgb Conc 33.1 g/dL (32-36); Mean Corpuscular Hgb 30.2 pg (27.0-32.0); Monocyte# 0.63 X10^3/uL; Monocyte% 11.8 % (0-10); NRBC Flagged by Analyzer 0 % (0-5); Neutrophil # 3.33 X10^3/uL (2.7-7.7); Neutrophil % 62.2 % (47-70); Platelet Count 278 K/mm3 (150-450); RBC Distribution Width SD 40.5 fl (35.1-43.9); Red Blood Count 5.24 M/mm3 (4.6-6.2); White Blood Count 5.4 K/mm3 (4.4-11.0)
[2020-03-18 15:58] LABS: ALB/GLOB Ratio 1.3 RATIO (0.9-2.4); AST(SGOT) 14 U/L (15-37); Alanine Aminotransfer ALT/SGPT 32 U/L (16-61); Albumin, Serum 3.9 g/dL (3.2-5.0); Alkaline Phosphatase 85 U/L (45-117); Anion Gap 4 (5-15); BUN 16 mg/dL (7-18); BUN/Creat Ratio 16.7 RATIO (10-20); Chloride 109 mmol/L (98-107); Creatinine, Serum 0.96 mg/dL (0.70-1.30); EST Glomerular Filtration Rate 84 mL/min (>60); Est Glom Filt Rate - Afr Amer 102 mL/min (>60); Globulin 3.1 g/dL (2.2-4.2); Glucose 110 mg/dL (74-106); Potassium 4.5 mmol/L (3.5-5.1); Sodium Level 140 mmol/L (136-145)
[2020-03-18 16:07] LABS: Cholesterol 175 mg/dL (200); High Density Lipoprotein 62 mg/dL; PSA,Total - Annual Screen 2.19 ng/mL (0.00-4.00); Thyroid Stim Hormone (TSH) 1.08 uIU/mL (0.358-3.74); Triglycerides 114 mg/dL; Very Low Density Lipoprotein 23 mg/dL (5-40)
[2020-03-23 08:08] LABS: Testosterone, Free 12.54 ng/dL (5.00-21.00)
[2020-03-23 13:35] LABS: Testosterone, % Free 2.58 % (1.50-4.20); Testosterone, Total 486 ng/dL (264-916)
== END ==
PROVIDERS: Nurse Practitioner Family; PCP Internal Medicine; Referring Provider Internal Medicine; Visit Provider Internal Medicine
DX: K22.70 Barrett's esophagus without dysplasia (principal); R03.0 Elevated blood-pressure reading, without diagnosis of hypertension; E03.9 Hypothyroidism, unspecified; N52.9 Male erectile dysfunction, unspecified
CPT/HCPCS: 36415; 80053; 80061; 84153; 84402; 84403; 84443; 85025; G0103

== ENCOUNTER → 2020-08-10 13:51 | Outpatient (CLI) | payer MEDICAID, SELFPAY ==
[2020-08-10 13:21] VITALS: BMI 24.0
[2020-08-10 14:58] LABS: Absolute Lymphocyte Count 1.44 X10^3/uL (0.83-4.51); Absolute Neutrophil Count 2.7 X10^3/uL (2.0-7.7); Basophil# 0.02 X10^3/uL; Basophil% 0.4 % (0-1); Eosinophil# 0.19 X10^3/uL; Eosinophils% 3.8 % (0-5); Hematocrit 45.3 % (40-54); Hemoglobin 15.3 g/dL (13.0-16.5); Lymphocyte # 1.44 X10^3/ul (0.83-4.51); Lymphocyte % 29.1 % (19-41); Mean Corp Hgb Conc 33.8 g/dL (32-36); Mean Corpuscular Hgb 30.8 pg (27.0-32.0); Mean Corpuscular Volume 91.3 fL (80-94); Mean Platelet Vol. 9.9 fl (6.2-12.0); Monocyte# 0.57 X10^3/uL; Monocyte% 11.5 % (0-10); NRBC Flagged by Analyzer 0 % (0-5); Neutrophil # 2.71 X10^3/uL (2.7-7.7); Neutrophil % 54.8 % (47-70); Platelet Count 254 K/mm3 (150-450); RBC Distribution Width SD 40.1 fl (35.1-43.9); Red Blood Count 4.96 M/mm3 (4.6-6.2)
[2020-08-10 15:34] LABS: ALB/GLOB Ratio 1.2 RATIO (0.9-2.4); AST(SGOT) 23 U/L (15-37); Alanine Aminotransfer ALT/SGPT 41 U/L (16-61); Albumin, Serum 3.8 g/dL (3.2-5.0); Alkaline Phosphatase 82 U/L (45-117); Anion Gap 7 (5-15); BUN 23 mg/dL (7-18); BUN/Creat Ratio 24.1 RATIO (10-20); Chloride 106 mmol/L (98-107); Creatinine, Serum 0.95 mg/dL (0.70-1.30); EST Glomerular Filtration Rate 85 mL/min (>60); Est Glom Filt Rate - Afr Amer 103 mL/min (>60); Globulin 3.3 g/dL (2.2-4.2); Glucose 103 mg/dL (74-106); Potassium 4.3 mmol/L (3.5-5.1); Protein, Total 7.1 g/dL (6.4-8.2); Sodium Level 139 mmol/L (136-145)
== END ==
PROVIDERS: PCP Internal Medicine; Visit Provider Internal Medicine
DX: Z01.818 Encounter for other preprocedural examination (principal); M72.2 Plantar fascial fibromatosis
CPT/HCPCS: 36415; 80053; 85025

== ENCOUNTER → 2021-02-13 13:28 | Outpatient (CLI) | payer MEDICAID, SELFPAY ==
[2021-02-13 15:08] LABS: Basophil# 0.02 X10^3/uL; Basophil% 0.4 % (0-1); Eosinophil# 0.08 X10^3/uL; Eosinophils% 1.5 % (0-5); Hematocrit 45.9 % (40-54); Hemoglobin 15.4 g/dL (13.0-16.5); Mean Corp Hgb Conc 33.6 g/dL (32-36); Mean Corpuscular Hgb 30.6 pg (27.0-32.0); Mean Corpuscular Volume 91.3 fL (80-94); Mean Platelet Vol. 10.2 fl (6.2-12.0); Monocyte# 0.59 X10^3/uL; Monocyte% 11.4 % (0-10); NRBC Flagged by Analyzer 0 % (0-5); Neutrophil # 2.98 X10^3/uL (2.7-7.7); Neutrophil % 57.5 % (47-70); Platelet Count 279 K/mm3 (150-450); RBC Distribution Width CV 12.2 % (11.6-14.6); RBC Distribution Width SD 40.4 fl (35.1-43.9); Red Blood Count 5.03 M/mm3 (4.6-6.2); White Blood Count 5.2 K/mm3 (4.4-11.0)
[2021-02-13 15:45] LABS: AST(SGOT) 16 U/L (15-37); Alanine Aminotransfer ALT/SGPT 32 U/L (16-61); Albumin, Serum 3.7 g/dL (3.2-5.0); Alkaline Phosphatase 87 U/L (45-117); Anion Gap 7 (5-15); BUN 14 mg/dL (7-18); BUN/Creat Ratio 15.2 RATIO (10-20); Chloride 105 mmol/L (98-107); Cholesterol 155 mg/dL (200); Creatinine, Serum 0.92 mg/dL (0.70-1.30); EST Glomerular Filtration Rate 88 mL/min (>60); Est Glom Filt Rate - Afr Amer 107 mL/min (>60); Globulin 3.6 g/dL (2.2-4.2); Glucose 94 mg/dL (74-106); High Density Lipoprotein 51 mg/dL; Potassium 4.3 mmol/L (3.5-5.1); Protein, Total 7.3 g/dL (6.4-8.2); Sodium Level 140 mmol/L (136-145); Thyroid Stim Hormone (TSH) 1.32 uIU/mL (0.358-3.74); Triglycerides 95 mg/dL; Very Low Density Lipoprotein 19 mg/dL (5-40)
== END ==
PROVIDERS: PCP Internal Medicine; Referring Provider Internal Medicine; Visit Provider Internal Medicine
DX: E03.9 Hypothyroidism, unspecified (principal)
CPT/HCPCS: 36415; 80053; 80061; 84443; 85025